=== PATIENT | male | born 1995 | race Caucasian/White ===

== ENCOUNTER 2017-11-18 04:59 | Emergency (ER) | payer OTHER ==
[~2017-11-18] VITALS: Ht 180.3 cm; Wt 102.0 kg
[2017-11-18 05:12] VITALS: BP 147/97; PULSE 85; RESP 20; TEMP 98.8; O2SAT 99
[2017-11-18] MEDS ORDERED: IBUP1TAB7 PO (05:23)
--- NOTE | 2017-11-18 05:26 | PD ---
HPI Chief Complaint: Injury Time Seen by Provider: 05:20 Travel History International Travel<30 days: No Contact w/Intl Traveler<30days: No Traveled to known affect area: No History of Present Illness HPI This is a 22-year-old [id number] male presents for evaluation of left elbow pain. Symptoms started yesterday evening spontaneously. He reports that he returned to his dorm room and found that he had pain in his left elbow which is a sharp pain and worse with movement. Symptoms have persisted and this is what prompted evaluation. He denies any injury. He denies any strenuous or repetitive activities. Denies any numbness or tingling or pain in the left forearm, hand, proximal arm or shoulder or neck. He has not tried using any [id number] medication for symptom relief. He has no other complaints at this time. [facility] Past Medical History Medical History: Denies Significant Hx Diminished Hearing: No Immunizations Current: Yes Tetanus Vaccination: < 5 Years Influenza Vaccination: Yes Past Surgical History Oral Surgery: Yes (wisdom teeth) Tonsillectomy: Yes Social History Alcohol Use: No Tobacco Use: No Substance Use: No Allergies-Medications (Allergen,Severity, Reaction): Coded Allergies: No Known Allergies (Unverified Adverse Reaction, Unknown, 11/18/17) Reported Meds & Prescriptions Reported Meds & Active Scripts Active Ibuprofen 800 Mg Tab 800 Mg PO Q6HR PRN Review of Systems General / Constitutional: No: Fever, Chills Musculoskeletal: No: Limited ROM, Edema, Pain Neurologic: No: Paresthesia Physical Exam Narrative GENERAL: Well-developed well-nourished male who appears anxious. SKIN: Warm and dry. CARDIOVASCULAR: Regular rate and rhythm. No murmur appreciated. RESPIRATORY: No accessory muscle use. Clear to auscultation. Breath sounds equal bilaterally. MUSCULOSKELETAL: No obvious deformities. There is no reproducible tenderness to palpation. There is no joint effusion. The patient maintains full range of motion of the left upper extremity. He has full muscle strength in the left upper extremity. He has no tenderness to palpation to the medial epicondyle, lateral epicondyle, olecranon, there is no olecranon bursal swelling, there is no tenderness to palpation to the cubital tunnel. There is no edema. 2+ radial pulse. Capillary refill less than 2 seconds all digits left hand. NEUROLOGICAL: Awake and alert. No obvious cranial nerve deficits. Motor grossly within normal limits. Normal speech. Data Data Last Documented VS Vital Signs Date Time Temp Pulse Resp B/P (MAP) Pulse Ox O2 Delivery O2 Flow Rate FiO2 11/18/17 05:12 98.8 85 20 147/97 (114) 99 Orders Orders Ed Discharge Order (11/18/17 05:21) Ketorolac Inj (Toradol Inj) (11/18/17 05:30) Orphenadrine Inj (Norflex Inj) (11/18/17 05:30) MDM Medical Decision Making Medical Screen Exam Complete: Yes Emergency Medical Condition: Yes Medical Record Reviewed: Yes Differential Diagnosis Medial epicondylitis, lateral epicondylitis, bursitis, muscle spasm, muscle strain Narrative Course Physical examination is wholly unremarkable. I suspect that his pain is muscular, possibly a muscle spasm. He will be given Toradol and Norflex here and discharged with a prescription for ibuprofen. Diagnosis Primary Impression: Left elbow pain Additional Instructions: Medication as prescribed. Take with meals. Avoid activities that exacerbate the pain. Follow-up with primary care physician in 2 weeks. Return for any emergent medical conditions. Med/Other Pt SpecificInfo: Prescription(s) given Scripts Ibuprofen (Ibuprofen) 800 Mg Tab 800 MG PO Q6HR Y for PAIN, #40 TAB 0 Refills Prov: Rush Valenzuela MD 11/18/17 Disposition: 01 DISCHARGE HOME Condition: Stable Yobani Rivers Nov 18, 2017 05:26
[2017-11-18] MEDS ORDERED: ORPHENADRINE INJ 60 MG/2 ML AMP IM ONE (05:30)
[2017-11-18] MEDS ORDERED: KETOROLAC TROMETHAMINE 60 MG/2 ML (IM) VIAL IM ONE (05:30)
== END 2017-11-18 06:39 | disposition home or self-care (01) ==
LOC: NEPD 04:59
DX: M25.522 Pain in left elbow (principal)
CPT/HCPCS: 96372; 99283; J1885; J2360